=== PATIENT | male | born 1955 | race African-American/Black ===

== ENCOUNTER 2021-10-30 13:20 | Emergency (ER) | payer MEDICARE ==
[2021-10-30] MEDS ORDERED: Diazepam 10 MG/2 ML SYRINGE ONE (15:06)
== END 2021-10-30 16:40 | disposition home or self-care (01) ==
LOC: ERS 13:20
DX: M54.2 Cervicalgia (principal); E11.9 Type 2 diabetes mellitus without complications; I10 Essential (primary) hypertension; E78.5 Hyperlipidemia, unspecified
CPT/HCPCS: 72125; 96374; J3360